=== PATIENT | female | born 1955 | race Caucasian/White ===

== ENCOUNTER 2017-10-02 09:40 | Outpatient (CLI) | payer OTHER | END 2017-10-02 09:48 | disposition home or self-care (01) | LOC: SONOGRAMA 09:40 | DX: D37.030 Neoplasm of uncertain behavior of the parotid salivary glands (principal) ==

== ENCOUNTER 2018-07-23 09:04 | Outpatient (CLI) | payer OTHER | END 2018-07-23 09:06 | disposition home or self-care (01) | LOC: SONOGRAMA 09:04 | DX: D11.0 Benign neoplasm of parotid gland (principal) ==

== ENCOUNTER 2019-11-22 10:37 | Outpatient (CLI) | payer OTHER | END 2019-11-22 11:09 | disposition home or self-care (01) | LOC: SONOGRAMA 10:37 | PROVIDERS: ATTEND Pathology Anatomic Pathology & Clinical Pathology | DX: K11.8 Other diseases of salivary glands (principal) ==